=== PATIENT | female | born 1950 | race Caucasian/White ===

== ENCOUNTER 2016-12-01 11:01 | Outpatient (CLI) | payer OTHER ==
[2015-09-11 00:48] VITALS: BP 182/86
[2016-12-01 11:15] LABS: BASOPHILS % 0.6 (0.0-1.5); EOSINOPHILS % 6.6 % (0.0-6.8); MEAN CORPUSCULAR HEMOGLOBIN 32.1 pg (28.0-34.0); MEAN CORPUSCULAR VOLUME 94.6 fl (80.0-100.0); MONOCYTES % 5.5 % (0.0-11.0); NEUTROPHILS # 3.5 # k/uL (1.4-7.7)
--- NOTE | 2016-12-01 11:38 | Diagnostic Imaging Report ---
SHU CHRISTIANSON [facility] [address] [address] Report Submission Date: Dec 01, 2016 11:36:31 AM CDT Patient Study Name: ROMEL CHAPA Date: Dec 01, 2016 11:26:02 AM CDT Modality Type: CR Gender: F Description: CHEST : 52 Institution: [facility] Physician: SHU CHRISTIANSON Examination: PA and lateral chest. History: Evaluate lung sanchez. Comparison exam: None available Findings: PA lateral chest demonstrate a normal cardiac and mediastinal silhouette. Minimal tortuosity of the thoracic aorta. No focal infiltrate. No blunting of the costophrenic margins. Osseous structures are appropriate for age. Impression: No acute pulmonary process. Electronically signed on Dec 01, 2016 11:36:31 AM CDT by: Sunil JUAREZ
[2016-12-01 11:56] LABS: eGFR (African) > 60; eGFR (Non-African) > 60
== END 2016-12-01 11:13 ==
LOC: RAD 11:01
PROVIDERS: ATTEND Family Medicine
DX: R60.0 Localized edema (principal); R06.09 Other forms of dyspnea; I10 Essential (primary) hypertension
CPT/HCPCS: 36415; 71020; 80053; 85025

== ENCOUNTER 2017-01-06 21:35 | Emergency (ER) | payer OTHER ==
[2017-01-06] MEDS: CloNIDine HCL 0.1 MG TABLET PO ONE (22:28)
[2017-01-06] MEDS: FUROSEMIDE 40 MG/4 ML VIAL IVP ONE (22:28)
[2017-01-06 22:36] LABS: BASOPHILS % 0.6 (0.0-1.5); EOSINOPHILS % 7.6 % (0.0-6.8); MEAN CORPUSCULAR HEMOGLOBIN 32.1 pg (28.0-34.0); MEAN CORPUSCULAR VOLUME 94.1 fl (80.0-100.0); MONOCYTES % 5.9 % (0.0-11.0); NEUTROPHILS # 4.1 # k/uL (1.4-7.7)
[2017-01-06 22:52] LABS: eGFR (African) > 60; eGFR (Non-African) > 60
--- NOTE | 2017-01-06 22:53 | ED Physician Documentation ---
General Adult - HPI Stated Complaint: edema luis f legs Chief Complaint: General Adult Further Comments: yes (66 year old female patient presents with complaints of right leg weeping. Patient has been off her lasix for 1 week, has not taken her blood pressure medication tonight. Cannot wear her MIS hose due to edema. States she hit the wheelchair with her right leg, c/o weeping.) - ROS CONST: recent illness (6 month history of leg edema with intermittent lasix use) EYES/ENT: none CVS/RESP: none GI/: none MS/SKIN/LYMPH: leg swelling NEURO/PSYCH: denies: headache - PAST HX Past History: hypertension, other (morbid obesity, bilateral leg edema) Other History: other (sleep apnea - study on 01/16) Allergies/Adverse Reactions: Allergies Allergy/AdvReac Type Severity Reaction Status Date / Time shellfish derived AdvReac Severe diapheretic, Verified 01/06/17 22:29 diarrhea , assistance x2 codeine AdvReac Intermediate headache Verified 01/06/17 22:29 Sulfa (Sulfonamide AdvReac Intermediate don't feel Verified 01/06/17 22:29 Antibiotics) good Home Medications: Ambulatory Orders Medication Instructions Recorded Carvedilol [Coreg] 6.25 mg PO BID 09/10/15 - SOCIAL HX Smoking History: non-smoker - FAMILY HX Family History: No - VITAL SIGNS Vital Signs: Vital Signs Temp Pulse Resp BP Pulse Ox 98.1 F 68 18 228/99 97 01/06/17 21:35 01/06/17 21:35 01/06/17 21:35 01/06/17 21:35 01/06/17 21:35 - REVIEWED ASSESSMENTS Nursing Assessment Reviewed: Yes Vitals Reviewed: Yes Progress - Progress Progress: Reviewed lab with patient. BP improved with lasix and clonidine. Will start 1 week of lasix bid with potassium. Robert wrapped bilateral legs. Instructed patient to follow up with PCP next week for further medical treatment of edema. ED Results Lab/Radiology - Lab Results Lab Results: Lab Results 01/06/17 01/06/17 22:25 22:25 WBC 6.50 K/ul K/ul (4.00-12.00) RBC 4.42 M/ul M/ul (3.90-5.20) Hgb 14.2 g/dL g/dL (12.0-16.0) Hct 41.6 % % (34.5-46.5) MCV 94.1 fl fl (80.0-100.0) MCH 32.1 pg pg (28.0-34.0) MCHC 34.1 g/dL g/dL (30.0-36.0) RDW 13.0 % % (11.3-14.3) Plt Count 160 K/mm3 K/mm3 (130-400) Neut % (Auto) 63.8 % % (39.0-79.0) Lymph % (Auto) 20.9 % % (16.0-50.0) [place] % (Auto) 5.9 % % (0.0-11.0) Eos % (Auto) 7.6 % H % (0.0-6.8) Baso % (Auto) 0.6 (0.0-1.5) Neut # (Auto) 4.1 # k/uL # k/uL (1.4-7.7) Lymph # (Auto) 1.4 # k/uL # k/uL (0.6-4.0) [place] # (Auto) 0.4 # k/uL # k/uL (0.0-0.9) Eos # (Auto) 0.5 # k/uL # k/uL (0.0-0.6) Baso # (Auto) 0.0 # k/uL # k/uL (0.0-0.5) Reactive Lymphs % 1.2 % % (0.0-5.0) Reactive Lymphs # 0.1 # k/uL # k/uL (0.0-0.8) NT-Pro-B Natriuret Pep 484.2 pg/mL H pg/mL (15.0-125.0) - Radiology Radiology Impressions: PA and lateral chest Clinical history: DYSPNEA WITH EXERTION Findings: Examination of the chest in PA and lateral views with comparison to examination of December 01, 2016 demonstrates the lungs to be clear. The cardiovascular and mediastinal silhouettes are stable. Aorta is atherosclerotic. Central pulmonary arteries appear prominent suggesting pulmonary arterial hypertension. Degenerative changes are seen in the thoracic vertebrae. Impression: 1. Aortic atherosclerosis and left ventricular prominence. 2. Prominent central pulmonary arteries. Rule out pulmonary arterial hypertension. 3. No significant change. Electronically signed on Jan 06, 2017 10:50:18 PM STATISTICAL GENETICIST by: Dez Banks - Orders Orders: ED Orders Category Date Time Status Place IV Lock 1T Care 01/06/17 22:00 Active CHEST 2 VIEW [CHEST P.A.&LAT 2 VIEWS] [RAD] Stat Exams 01/06/17 Taken BNP [NT-proBNP] Stat Lab 01/06/17 22:25 Completed CBC/PLATELET/DIFF Stat Lab 01/06/17 22:25 Completed CMP Stat Lab 01/06/17 22:25 Received CloNIDine HCL [Catapress] Med 01/06/17 21:59 Discontinued 0.1 mg PO NOW ONE Furosemide [Lasix] Med 01/06/17 22:00 Discontinued 40 mg IVP NOW ONE General Adult Physical Exam - PHYSICAL EXAM GENERAL APPEARANCE: mild distress EENT: eye inspection normal, ANTOINETTE RESPIRATORY: no resp distress, chest non-tender, breath sounds normal CVS: reg rate & rhythm, heart sounds normal, equal pulses, no murmur, no gallop , PMI nml, no JVD, no friction rub, 24 ABDOMEN: soft, no organomegaly, normal bowel sounds, no abdominal bruit, no distension BACK: normal inspection, no CVA tenderness SKIN: warm/dry, normal color, other (left posterior leg with weeping blisters to posterior distal aspect) EXTREMITIES: non-tender, normal range of motion, no evidence of injury, edema (3 + right > left) NEURO: oriented X3, CN's nml as tested, motor nml, sensation nml, mood/affect nml Discharge Clincal Impression: Bilateral edema of lower extremity Referrals: Jerson Valdez MD [Primary Care Provider] - 2 Days Additional Instructions: Increase your lasix to twice a day for the next 7 days. customer complaint service supervisor your potassium and start it tomorrow. Clean the laceration twice a day with hibiclens and rinse with water clean away any scabbed area Cover with non-adherent bandage if able. Follow up with Dr Valdez next week for re-evaluation of legs and wound. Take your BP medication as prescribed. Condition: Stable Disposition: 01 HOME, SELF-CARE Decision to Admit: NO Decision Time: 23:05
--- NOTE | 2017-01-06 23:01 | Diagnostic Imaging Report ---
ELMIRA SALDAÑA (KELSEY) - [facility] [address] [address] Report Submission Date: Jan 06, 2017 10:50:18 PM BLENDER OPERATOR Patient Study Name: ROMEL CHAPA Date: Jan 06, 2017 10:33:23 PM BLENDER OPERATOR Modality Type: CR Gender: F Description: CHEST : 52 Institution: [facility] Physician: ELMIRA SALDAÑA) - ER PA and lateral chest Clinical history: DYSPNEA WITH EXERTION Findings: Examination of the chest in PA and lateral views with comparison to examination of December 01, 2016 demonstrates the lungs to be clear. The cardiovascular and mediastinal silhouettes are stable. Aorta is atherosclerotic. Central pulmonary arteries appear prominent suggesting pulmonary arterial hypertension. Degenerative changes are seen in the thoracic vertebrae. Impression: 1. Aortic atherosclerosis and left ventricular prominence. 2. Prominent central pulmonary arteries. Rule out pulmonary arterial hypertension. 3. No significant change. Electronically signed on Jan 06, 2017 10:50:18 PM BLENDER OPERATOR by: Dez JUAREZ
[2017-01-06] MEDS: POTASSIUM CHLORIDE 20 MEQ TABLET.ER PO ONE (23:49)
[2017-01-07 00:50] VITALS: BP 169/80
== END 2017-01-07 00:20 | disposition home or self-care (01) ==
LOC: ED 21:35
DX: R60.0 Localized edema (principal)
CPT/HCPCS: 71020; 80053; 83880; 85025; 96374; 99283; J1940; A9270; S1016

== ENCOUNTER 2017-05-08 13:27 | Outpatient (CLI) | payer MEDICARE, OTHER | END 2017-05-08 13:30 | LOC: CARD 13:27 | PROVIDERS: ATTEND Internal Medicine Cardiovascular Disease | DX: R06.02 Shortness of breath (principal); R06.00 Dyspnea, unspecified ==

== ENCOUNTER 2018-04-24 12:47 | Outpatient (CLI) | payer MEDICARE, OTHER ==
[2018-04-24 13:02] LABS: BASOPHILS % 0.8 (0.0-1.5); EOSINOPHILS % 4.4 % (0.0-6.8); MEAN CORPUSCULAR HEMOGLOBIN 31.8 pg (28.0-34.0); MONOCYTES % 6.6 % (0.0-11.0); NEUTROPHILS # 4.8 # k/uL (1.4-7.7)
[2018-04-24 13:19] LABS: eGFR (Non-African) > 60
== END 2018-04-24 12:50 ==
LOC: LAB 12:47
PROVIDERS: ATTEND Family Medicine
DX: Z79.899 Other long term (current) drug therapy (principal)
CPT/HCPCS: 36415; 80053; 85025